=== PATIENT | male | born 1940 | race Caucasian/White ===

== ENCOUNTER → 2018-06-06 | Outpatient (CLI) | payer MEDICARE, OTHER ==
--- NOTE | 2018-06-06 09:30 | Diagnostic Imaging Report ---
EXAMINATION: PA and lateral views of the chest. COMPARISON: None CLINICAL HISTORY: Renal cyst/neoplasm DISCUSSION: The lungs are hyperinflated with flattening of the hemidiaphragms and increased AP diameter of the chest. No airspace consolidation, pleural effusion, or pneumothorax. Tortuosity and atherosclerotic calcification of the thoracic aorta with otherwise normal cardiomediastinal contour. No overt pulmonary edema. Right flank surgical clips are incidentally noted. No acute osseous abnormalities. Degenerative disc changes of the thoracolumbar spine. IMPRESSION: No acute cardiopulmonary abnormalities. Pulmonary hyperinflation in keeping with emphysema. Signed by: Dr. Dionisio Reeves M.D. on 06/06/2018 9:27 AM
--- NOTE | 2018-06-06 10:01 | Diagnostic Imaging Report ---
EXAMINATION: Renal ultrasound. CLINICAL HISTORY :Renal cyst/neoplasm COMPARISON: <None available.> TECHNIQUE: Grayscale and color Doppler evaluation of the kidneys and bladder was performed in transverse and longitudinal planes. 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 No hydronephrosis, calculi, or solid mass lesion LEFT KIDNEY: The left kidney measures 12.3 cm in length and shows normal echogenicity. There are 2 round anechoic structures with posterior acoustic enhancement and no internal septation or solid component compatible with simple cysts projecting laterally from the left kidney measuring 1.8 x 1.5 x 1.6 cm and 1.6 x 1.4 x 1.5 cm. No calculi or hydronephrosis. BLADDER: Unremarkable. Right and left ureteral jets are identified. The prostate is enlarged with estimated volume 69 cc IMPRESSION: Asymmetrically diminutive right kidney in keeping with reported history of partial nephrectomy. No residual or recurrent mass lesion. Simple left renal cysts. Prostatomegaly. Signed by: Dr. Dionisio Reeves M.D. on 06/06/2018 9:58 AM
== END ==
LOC: US 08:44
PROVIDERS: ATTEND Urology
DX: C64.9 Malignant neoplasm of unspecified kidney, except renal pelvis (principal); N28.1 Cyst of kidney, acquired
CPT/HCPCS: 71046; 76770